=== PATIENT | male | born 1985 | race Two or more races ===

== ENCOUNTER 2017-07-23 00:08 | Day surgery (SDC) | payer OTHER ==
[~2017-07-23 00:08] MED LIST: AMAN100 PO; CYCL10 PO; Cymbalta30 MG PO; EPIPEN0.3 MG/0.3 SC; GABA300 PO; GLATOPA20 MG/1 ML SC; HYDACE5 PO; IBUP600 PO; IBUP800 PO; NAPR500 PO; Prednisone20 MG PO; RXCYCL10 PO; Ultram50 MG PO; VITAMIN D250000 UNIT PO
== END 2017-07-23 11:02 | disposition home or self-care (01) ==
LOC: ATC 00:08
DX: G35 Multiple sclerosis (principal); E55.9 Vitamin D deficiency, unspecified; M79.2 Neuralgia and neuritis, unspecified; R25.2 Cramp and spasm; F33.9 Major depressive disorder, recurrent, unspecified
CPT/HCPCS: 96365; J2930

== ENCOUNTER 2017-07-24 00:32 | Day surgery (SDC) | payer OTHER | END 2017-07-24 10:29 | disposition home or self-care (01) | LOC: ATC 00:32 | DX: G35 Multiple sclerosis (principal); E55.9 Vitamin D deficiency, unspecified | CPT/HCPCS: 96365; J2930 ==

== ENCOUNTER 2017-07-25 00:06 | Day surgery (SDC) | payer OTHER | END 2017-07-25 16:25 | disposition home or self-care (01) | LOC: ATC 00:06 | DX: G35 Multiple sclerosis (principal); E55.9 Vitamin D deficiency, unspecified; R53.83 Other fatigue; M79.2 Neuralgia and neuritis, unspecified; R25.2 Cramp and spasm | CPT/HCPCS: 96365; J2930 ==

== ENCOUNTER 2017-07-28 20:08 | Emergency (ER) | payer OTHER ==
[~2017-07-28] VITALS: Ht 177.8 cm; Wt 86.2 kg
== END 2017-07-28 22:54 | disposition left against medical advice (07) ==
LOC: ER 20:08
DX: G35 Multiple sclerosis (principal); Z88.0 Allergy status to penicillin; Z79.899 Other long term (current) drug therapy
CPT/HCPCS: 99281